=== PATIENT | male | born 2000 | race Asian ===

== ENCOUNTER 2020-11-13 10:47 | Inpatient (IN) | payer OTHER ==
[~2020-11-13] VITALS: Ht 170.2 cm; Wt 70.2 kg
[2020-11-13 11:28] LABS: HEMATOCRIT 46.8 % (42.0-52.0); HEMOGLOBIN 15.6 g/dl (13.5-17.5); MEAN CORPUSCULAR HEMOGLOBIN 30.1 pg (27.0-33.0); MEAN CORPUSCULAR HGB CONC 33.3 g/dl (32.0-36.5); MEAN CORPUSCULAR VOLUME 90.3 fl (80.0-96.0); PLATELET COUNT, AUTOMATED 214 10^3/uL (150-450); RED BLOOD COUNT 5.18 10^6/uL (4.30-6.10); WHITE BLOOD COUNT 6.7 10^3/uL (4.0-10.0)
[2020-11-13 12:00] LABS: AMPHETAMINES LEVEL URINE NEGATIVE (NEGATIVE); BARBITURATES URINE NEGATIVE (NEGATIVE); BENZODIAZEPINES URINE NEGATIVE (NEGATIVE); CANNABINOIDS URINE NEGATIVE (NEGATIVE); COCAINE METABOLITE URINE NEGATIVE (NEGATIVE); METHADONE URINE NEGATIVE (NEGATIVE); OPIATES URINE NEGATIVE (NEGATIVE); PHENCYCLIDINE URINE NEGATIVE (NEGATIVE)
[2020-11-13 12:06] LABS: ACETAMINOPHEN LEVEL < 2.0 UG/ML (10.0-30.0); ALBUMIN 3.7 GM/DL (3.2-5.2); ALT/SGPT 26 U/L (12-78); BILIRUBIN,DIRECT 0.1 MG/DL (0.0-0.2); BILIRUBIN,TOTAL 0.5 MG/DL (0.2-1.0); BLOOD UREA NITROGEN 11 MG/DL (7-18); CARBON DIOXIDE LEVEL 32 MEQ/L (21-32); CHLORIDE LEVEL 107 MEQ/L (98-107); CREATININE FOR GFR 0.87 MG/DL (0.70-1.30); ETHYL ALCOHOL (ETHANOL) < 0.003 % (0.000-0.010); GLUCOSE, FASTING 94 MG/DL (70-100); POTASSIUM SERUM 4.7 MEQ/L (3.5-5.1); SALICYLATE LEVEL < 1.7 MG/DL (5.0-30.0); SODIUM LEVEL 139 MEQ/L (136-145); THYROID STIMULATING HORMONE 0.788 uIU/ML (0.463-3.98); TOTAL PROTEIN 6.8 GM/DL (6.4-8.2)
[2020-11-13] MEDS ORDERED: HOME MED LIST COMPLETE! XX SCH (14:50)
[2020-11-13 15:20] LABS: RSV AMPLIFICATION NEGATIVE (NEGATIVE)
--- NOTE | 2020-11-13 15:34 | MHIPNPDOC ---
[facility] Progress Note Progress Note DATE OF SERVICE: 11/13/20 Patient presented by PSA, meets criteria for involuntary admission. Reported to have worsening depression in context of loneliness and isolation from family. Over weekend tried to stab self with dull knife and drown self in bathtub, as interrupted attempt. Has worsening SI today. Vital Signs Vital Signs Date Time Temp Pulse Resp B/P (MAP) Pulse Ox O2 Delivery O2 Flow Rate FiO2 11/13/20 11:01 98.3 70 16 136/77 (96) 99 Room Air Laboratory Data 24H Labs Laboratory Tests 2 11/13/20 11:05: Nucleated Red Blood Cells % (auto) 0.0, Anion Gap 0L, Calcium Level 9.0, Total Bilirubin 0.5, Direct Bilirubin 0.1, Aspartate Amino Transf (AST/SGOT) 12, Alanine Aminotransferase (ALT/SGPT) 26, Alkaline Phosphatase 81, Total Protein 6.8, Albumin 3.7, Albumin/Globulin Ratio 1.2, Thyroid Stimulating Hormone (TSH) 0.788, Salicylates Level < 1.7L, Urine Opiates Screen NEGATIVE, Urine Methadone Screen NEGATIVE, Acetaminophen Level < 2.0L, Urine Barbiturates Screen NEGATIVE, Urine Phencyclidine Screen NEGATIVE, Urine Amphetamines Screen NEGATIVE, Urine Benzodiazepines Screen NEGATIVE, Urine Cocaine Metabolite Screen NEGATIVE, Urine Cannabinoids Screen NEGATIVE, Ethyl Alcohol Level < 0.003 11/13/20 14:31: Coronavirus (COVID-19)(PCR) NEGATIVE, Influenza Type A (RT-PCR) NEGATIVE, I nfluenza Type B (RT-PCR) NEGATIVE, Respiratory Syncytial Virus (PCR) NEGATIVE CBC/BMP Laboratory Tests 11/13/20 11:05 Current Medications Current Medications Medications (Trade) Dose Ordered Sig/Jinny Route PRN Reason Start Time Stop Time Status Last Admin Dose Admin Home Med (Home Med List Complete!) ASDIRECTED XX 11/13/20 14:50 11/13/20 14:48 DC Allergies Coded Allergies: No Known Allergies (Verified Allergy, Unknown, 11/13/20) LEE KNOWLES MD Nov 13, 2020 15:34
[2020-11-13] MEDS ORDERED: OLANZapine 5 MG TAB PO PRN (16:30)
[2020-11-13] MEDS ORDERED: traZODone 50 MG TAB PO PRN (16:30)
[2020-11-13] MEDS ORDERED: ACETAMINOPHEN TAB 650MG DOSE (2X325MG) PO PRN (16:30)
[2020-11-13] MEDS ORDERED: MOM 30ML SUSPENSION UDC PO PRN (16:30)
[2020-11-13] MEDS ORDERED: hydrOXYzine 50 MG TAB PO PRN (16:30)
[2020-11-13] MEDS ORDERED: MAALOX 30 ML SUSP *UDC PO PRN (16:30)
[2020-11-13 17:46] VITALS: BP 166/81
[2020-11-14 05:56] VITALS: BP 111/74
--- NOTE | 2020-11-14 13:07 | HPEPDOC ---
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 Patient states that he feels very isolated as his family is from [place] and he is here for the [employer]. Patient's grandfather had recently and the patient was unable to attend the emilio use of this. Patient began to feel worse and worse and did try to go to work yesterday but presented to the emergency department. Patient was admitted to the inpatient mental health unit for further care of his depression. Patient does not have any medical complaints at this time. PAST MEDICAL HISTORY: 1. Depression. PAST SURGICAL HISTORY: Patient denies any past surgical history SOCIAL HISTORY: Patient denies smoking tobacco, drinking alcohol, or using illicit drugs. Patient is currently active duty in the [employer] FAMILY HISTORY: Patient denied any known family history ALLERGIES: Please see below. REVIEW OF SYSTEMS: General: Patient denies fevers HEENT: Patient denies headaches Cardiovascular: Patient denies chest pain Respiratory: Patient denies shortness of breath, cough GI: Patient denies abdominal pain, nausea, vomiting, diarrhea : Patient denies increased frequency or pain with urination Extremities: Patient denies swelling or pain in extremities Neurological: Patient denies numbness or tingling in legs Skin: Patient denies any new rashes or lesions. Hematologic: Patient denies any easy bruising. Lymphatic: Patient denies any lumps lumps or bumps in neck, axilla, or groin HOME MEDICATIONS: Please see below. PHYSICAL EXAMINATION: VITAL SIGNS: Temperature 98.1, pulse 49, respiratory rate 16, blood pressure 111/74, pulse oximetry 95% on room air. General: Alert and oriented male patient who was walking on the unit when I walked down. Patient was able to walk into the examination room and sit down without difficulty. Patient was in no acute distress. HEENT: Normocephalic, atraumatic, moist mucous membranes. Neck: No lymphadenopathy or thyromegaly Cardiac: Regular rate and rhythm, no murmurs, normal S1, normal S2 Pulm: Clear to auscultation bilaterally. No wheezes, rhonchi, rales Abd: Nondistended, nontender to palpation, normal bowel sounds Ext: No edema bilateral lower extremities Neuro: Patient was able to move all 4 extremities on command and reported equal sensation light touch in all 4 extremities. Skin: Skin of the head, neck, upper and lower extremities was examined did not show any evidence of rash or wounds. LABORATORY DATA: See below. IMAGING: No imaging is been performed MICROBIOLOGY: Please see below. ASSESSMENT: 20-year-old male who presented to the emergency department with increase suicidal thoughts and depression.. . PLAN: 1. Depression. Continue treatment per psychiatry. 2. DVT prophylaxis: Not indicated as patient is on ambulatory unit Disposition: Patient will be discharged per psychiatry. Please reconsult hospitalist if the need arises. Thank you for this consult. Vital Signs Vital Signs Date Time Temp Pulse Resp B/P (MAP) Pulse Ox O2 Delivery O2 Flow Rate FiO2 11/14/20 05:56 98.1 49 16 111/74 (86) 95 Room Air Laboratory Data Labs 24H Laboratory Tests 2 11/13/20 14:31: Coronavirus (COVID-19)(PCR) NEGATIVE, Influenza Type A (RT-PCR) NEGATIVE, Influenza Type B (RT-PCR) NEGATIVE, Respiratory Syncytial Virus (PCR) NEGATIVE Home Medications No Active Prescriptions or Reported Meds Allergies Coded Allergies: No Known Allergies (Verified Allergy, Unknown, 11/13/20) A-FIB/CHADSVASC A-FIB History Current/History of A-Fib/PAF?: No LUCIA KOHLI DO Nov 14, 2020 13:07
--- NOTE | 2020-11-14 14:21 | MHHPEPDOC ---
General Date Of Admission: Nov 13, 2020 Legal Status: 9.39 Chief Complaint "Was a lot going on all at once" History of Present Illness HISTORY OF THE PRESENT ILLNESS: Patient is a 20 -year-old , male, who has no past psychiatric history, presents as transfer from [facility] due to making statements about interrupted suicide attempt and lying in bathtub, thoughts of cutting himself dull knife. Patient reports depression started 1 month ago because he did not get to see his family, reports grandfather November 01, father went to [place] and could not go to his grandparents as he was in processing for 2 weeks, states he felt isolated in the context of not be able to see his family and felt that people did not want to talk to him make him feel lonely during this 2-week period. States he had second thoughts about being in the and thought he would quit. Also reports worsening pain from wisdom tooth that he says he has an appointment to get removed tomorrow. Also reports that he was having a really bad day on Friday and everything came to a head when he was curtis and doing fairly poorly at this [employer] game. He also reports going into a rage because of this curtis failure and was locked out of his room and then went into a rage prompting him to seek help at [facility] when he told him that afterwards he had sat in a tub with thoughts of suicide, but that he just felt he needed to relax, says he also held a knife to his hand just to see what it would be like but states he would not go through with anything to end his life and that is all a misunderstanding. Thought he be referred to a therapist but instead was brought to the hospital. Per collateral from mother in [place] Elly Eason (ANDREW obtained): "I talked to him Friday. I told him he has choice to come home, he was very relieved. He was very home sick. He has options here to come work. He wanted to stay in [facility], he mentioned options to works. He was upset he has terminate the contract with . He wanted to know if he could also be transferred to [employer], I sent letter many times, but didn't work. He was disappointed by this. I don't think he really wanted to end his life. He says when brings up questions, including vacation to go to Grandpa's or celebrating birthday 11/04 he doesn't get answers. He seemed like his usual self except he was very lonely and homesick. He mentioned "nobody cares about me here" because he doesn't get responses about where he can work. No history of suicidal behavior. Don't know about any depression history. No suicides in the family. No history of mental health in family. I talked to him last night, I purchased a ticket and sister to come visit him this weekend. My daughter arrives . I arrive Friday." Psychiatric Review of Systems Depression (2 or more weeks): depressed mood, feelings of excess/guilt, decreased energy, difficulty concentrating, suicidal thoughts (" I never intended to act on these just wanted to leave") Barbra (4 or more days of): denies Psychosis: denies PTSD: denies Anxiety: denies Past Psychiatric History Previous Psychiatric Diagnosis: None Previous Psychiatric Admissions: None Suicide Attempts: None Psychiatric Follow-up: [facility], went for a walk-in prior to admission. Psychiatric medications: None Past Medical History Medical Problems Denies Head Injury: No Seizures: No Hospitalizations: No Surgeries: No Family Medical/Psychiatric HX Medical Problems Denies Psychiatric Disorders: No Addiction: No Suicide Attemps/Completions: No Addiction History denies Social History Childhood: Group in [facility], 2 older sisters. Abuse/Trauma: Denies Current Living Sit[place] [employer] [place] Education: High school Employment: Active duty Social Support: Mother, sisters Legal: Denied Marital: Single Mental Status Examination General Appearance: well groomed Build: average Demeanor: average Eye Contact: fair Activity: average Behavior: cooperative Speech: clear, spontaneous, reg/rate,rhythm,volume Mood: euthymic Mood "I'm okay" Affect: full, anxious Thought Process: logical/linear Thought Content (Delusions): none reported Thought Content (Other): none reported Thought Content (Aggressive): none reported Perception (Hallucinations): none reported Perception (Other): none reported Cognition (Impairment of): none reported Cognition(Intelligence Est.): above average Oriented: Oriented times three Insight: fair Judgment: Fair Psychosis: Denies Diagnoses Unspecified depressive disorder Adjustment disorder A-FIB/CHADSVASC A-FIB History Current/History of A-Fib/PAF?: No Current PO Anticoag Therapy: No Age/Risk Factor Scoring CHADSVASC: CHADSVASC Response (Comments) Value Age Risk Factor Age < 65 years old 0 Gender Risk Factor Male 0 Hx of CHF No 0 Hx of HTN No 0 Hx of Stroke/TIA/or VTE No 0 Hx of Diabetes No 0 Hx of Vascular Disease No 0 Total 0 Treatment Treatment ordered: NONE Reason Anticoagulant not given: Not indicated/[id number] Assessment Patient meets criteria for unspecified depressive disorder and adjustment disorder in context of acute stressors of starting in the , wanting to leave during processing and recent passing of grandfather not being able to celebrate birthday, feelings of isolation and not being heard. Was offered me dication including SSRI for mood, but refused despite having an understanding of explained risks of doing so, alternative treatments, possible benefits of taking medication. We will collaborate with social work to establish safe discharge plan possibly tomorrow or likely patient continues to improve, denies any suicidal ideation, intent or plan and remains future oriented with good outpatient support. Patient preferred talking to therapist for his primary treatment modality. Initial Treatment Plan 1. Patient was admitted on a [9.39] status. 2. Complete history was obtained. 3. With patients permission, family will be contacted and database will be expanded. 4. Patients medication regimen will be reviewed and changed accordingly. 5. Patient will be provided with protected environment. 6. Patient will be treated with individual, group, and milieu therapies. 7. Patient will receive supportive psych-education. 8. Discharge planning will commence immediately. 9. Outpatient follow-up treatment will be strongly recommended. 10. The initial treatment plan will focus initially on: * Depression. * Risk for suicide. ESTIMATED LENGTH OF STAY: 1-3 DAYS. TIME SPENT COUNSELING AND COORDINATING INITIAL CARE: 30 minutes. Tobacco Cessation Screen If Patient is a Smoker none N/A-No Antipsychotics Vital Signs Vital Signs Date Time Temp Pulse Resp B/P (MAP) Pulse Ox O2 Delivery O2 Flow Rate FiO2 11/14/20 05:56 98.1 49 16 111/74 (86) 95 Room Air Laboratory Data 24H Labs Laboratory Tests 2 11/13/20 14:31: Coronavirus (COVID-19)(PCR) NEGATIVE, Influenza Type A (RT-PCR) NEGATIVE, Influenza Type B (RT-PCR) NEGATIVE, Respiratory Syncytial Virus (PCR) NEGATIVE Medications No Active Prescriptions or Reported Meds Allergies Coded Allergies: No Known Allergies (Verified Allergy, Unknown, 11/13/20) LEE KNOWLES MD Nov 14, 2020 14:21
[2020-11-14 16:08] VITALS: BP 116/58
[2020-11-15 06:48] VITALS: BP 120/76
--- NOTE | 2020-11-15 10:06 | MHDSPDOC ---
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 Patient reports depression started 1 month ago because he did not get to see his family, reports grandfather November 01, father went to [place] and could not go to his grandparents as he was in processing for 2 weeks, states he felt isolated in the context of not be able to see his family and felt that people did not want to talk to him make him feel lonely during this 2-week period. States he had second thoughts about being in the and thought he would quit. Also reports worsening pain from wisdom tooth that he says he has an appointment to get removed tomorrow. Also reports that he was having a really bad day on Friday and everything came to a head when he was curtis and doing fairly poorly at this [employer] game. He also reports going into a rage because of this curtis failure and was locked out of his room and then went into a rage prompting him to seek help at [facility] when he told him that afterwards he had sat in a tub with thoughts of suicide, but that he just felt he needed to relax, says he also held a knife to his hand just to see what it would be like but states he would not go through with anything to end his life and that is all a misunderstanding. Thought he would be referred to a therapist, but instead was brought to the hospital. Vital signs: See below Consultants involved: See medical H&P by hospitalist Treatment and progress on the unit: Patient was admitted to the [facility] .39 legal status and was afforded the following treatment modalities: 1. Individual therapy 2. Group therapy 3. Medication management 4. Milieu therapy 5. Safe environment Hospital course: Patient was admitted to the [facility] on a 39 legal status. Was medically cleared prior to coming up to the [facility]. Patient denies consistent depression outside of being in the [employer], feeling isolated there and distant from family, having thoughts of quitting and the associated shame. States having 2 days in the hospital and being able to talk with family, myself and other people in the unit has come to terms with wanting to quit and return home to [facility], has goals to find a job or possibly return to school. Reports he has not been truly ever suicidal with any actual intent. 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 Obtained collateral from mother who states she does not have acute concerns or patient and feels he was just expressing himself due to frustration with isolation and being in the [employer] and considered leaving. Mother reports patient sister and herself will be coming and Friday to see the patient in visit, with the plan of possibly returning to [place]. Denies mood, anxiety or intrusive thoughts. On day of discharge patient denied depression, anxiety, insomnia, suicidal or homicidal ideations intent or plan, hallucinations, or delusions. Patient was [facility] with follow-up. Patient felt safe for discharge. Was offered continued stay on voluntary admission but refused. Discharge assessment: On today's interview patient is alert and oriented, dressed appropriately. Hygiene and grooming is well-kept. Wears glasses. Sm [place] on approach and is pleasant and engaged on interview. Denies depression and anxiety. Denies suicidal homicidal ideation, intent or planning. Denies and is not observed with sanchez or psychotic symptoms of delusions, hallucinations, bizarre thinking, obsessions, paranoia, ruminations, illogical thoughts, flight of ideas or having poor insight or judgment. Patient has normal mentation, declines further hospitalization of voluntary status and meets criteria for discharge today, patient encouraged to return the hospital if symptoms worsen or change and encouraged to call unit if they feel they need provider's questions to be answered or help with medications or care. Mental status: General Appearance: well groomed Build: average Demeanor: average Eye Contact: fair Activity: average Behavior: cooperative Speech: clear, spontaneous, reg/rate,rhythm,volume Mood "good" Affect: full, euthymic Thought Process: logical/linear Thought Content (Delusions): none reported Thought Content (Other): none reported Thought Content (Aggressive): none reported Perception (Hallucinations): none reported Perception (Other): none reported Cognition (Impairment of): none reported Cognition(Intelligence Est.): above average Oriented: Oriented times three Insight: Good Judgment: Good Psychosis: Denies Medications on discharge: see medication reconciliation: CSSRS on discharge: Wish to be : No nonspecific active suicidal thoughts: No lifetime attempts: 0 interrupted attempts: 0 aborted attempts: 0 preparatory acts or behavior: yes prior to admission, holding dull knife to hand. Taking into consideration safety state, status, modifiable, non-modifiable risk factors patient is at low risk on discharge for suicide according to [place] suicide evaluation. PLAN/FOLLOWUP ARRANGEMENTS: see social for [facility] appointment. Follow Up Care Education Label * Medical * Medical Follow Up [facility] * Established With This Provider Yes * Therapist [facility] * Date Nov 28, 2020 * Time 10:40 * Address of Clinic or Practice [facility] * The amount of time spent in the coordination of care for this patient was approximately 25 minutes. ETOH/Disorder Med Rx ETOH/DRUG DISORDER RX: Offrd @ d/c & pt refused Vital Signs/I&Os Vital Signs Date Time Temp Pulse Resp B/P (MAP) Pulse Ox O2 Delivery O2 Flow Rate FiO2 11/15/20 06:48 97.4 52 18 120/76 (91) 100 Room Air Medications No Active Prescriptions or Reported Meds Allergies Coded Allergies: No Known Allergies (Verified Allergy, Unknown, 11/13/20) LEE KNOWLES MD Nov 15, 2020 10:06
== END 2020-11-15 12:15 | disposition home or self-care (01) | DRG 881 ==
LOC: M ED 10:47 → M ED INP 16:28 → M PSY 17:45
PROVIDERS: ADMIT Student in an Organized Health Care Education/Training Program; ATTEND Student in an Organized Health Care Education/Training Program
DX: F43.21 Adjustment disorder with depressed mood (principal); R45.851 Suicidal ideations; Z63.4 Disappearance and death of family member; K08.89 Other specified disorders of teeth and supporting structures; Z60.9 Problem related to social environment, unspecified; Z20.822 Contact with and (suspected) exposure to COVID-19